=== PATIENT | male | born 2005 | race Caucasian/White ===

== ENCOUNTER 2025-02-04 13:18 | Emergency (ER) | payer BC ==
[2025-02-04 13:32] VITALS: RESP 18; BMI 36.0
[2025-02-04 17:02] VITALS: BP 108/66; PULSE 64; TEMP 98
== END 2025-02-04 17:47 | disposition home or self-care (01) ==
LOC: JERFT 13:18
DX: S80.12XA Contusion of left lower leg, initial encounter (principal); W51.XXXA Accidental striking against or bumped into by another person, initial encounter; Y93.66 Activity, soccer
CPT/HCPCS: 73590-TC-LT-FY; 93971-TC; 99284-25